=== PATIENT | female | born 2000 | race Caucasian/White ===

== ENCOUNTER 2018-07-26 00:21 | Emergency (ER) | payer SELFPAY ==
[~2018-07-26] VITALS: Ht 162.6 cm; Wt 64.9 kg
[2018-07-26] MEDS ORDERED: LEVO1TAB66 PO (00:38)
--- NOTE | 2018-07-26 00:48 | NUR ---
LOWER BACK PAIN X 2 DAYS. TODAY PAIN IS WORSE ON RIGHT SIDE, ALSO HAVING VAGINAL SPOTTING. LMP - 07/01/2018. DENIED URINARY SYMPTOMS. PT STATES SHE COULD BE . MD AT BEDSIDE, CALL LIGHT IN REACH
--- NOTE | 2018-07-26 01:14 | NUR ---
Jaja scanlon in ED - 07/26/18 at 0119 by GARFIELD PT BACK FROM CT, BEVERLY COLLECTED, SPEAKING WITH PT ABOUT KIDNEY FUNCTION AND BEING ADMITTED, NS BOLUS STARTED, EKG DONE
--- NOTE | 2018-07-26 01:21 | NUR ---
UA COLLLECTED AND SENT, CALL LIGHT IN REACH
[2018-07-26 01:33] LABS: BASOPHILS # (AUTO) 0.05 x10^3/uL (0-0.3); BASOPHILS % (AUTO) 1 % (0-1); EOSINOPHILS # (AUTO) 0.26 x10^3/uL (0-0.8); EOSINOPHILS % (AUTO) 2 % (1-7); LYMPHOCYTES # (AUTO) 1.66 x10^3/uL (1-6.1); LYMPHOCYTES % (AUTO) 15 % (22-44); MD NO; MEAN CORPUSCULAR HEMOGLOBIN 30.2 pg (27.0-34.8); MEAN CORPUSCULAR HGB CONC 33.6 g/dL (32.4-35.8); MEAN CORPUSCULAR VOLUME 89.8 fL (80-100); MEAN PLATELET VOLUME 8.7 fL (7.4-10.4); MONOCYTES # (AUTO) 0.68 x10^3/uL (0-1.4); MONOCYTES % (AUTO) 6 % (2-9); NEUTROPHILS # (AUTO) 8.67 x10^3/uL (1.8-8.0); NEUTROPHILS % (AUTO) 77 % (42-75); PLATELET COUNT 343 x10^3/uL (130-400); RED BLOOD COUNT 4.34 x10^6/uL (3.82-5.3)
[2018-07-26 01:35] LABS: ALANINE AMINOTRANSFERASE 20 U/L (12-78); ALBUMIN 3.7 g/dL (3.4-5.0); ANION GAP 5 mmol/L (5-15); CALCIUM 8.6 mg/dL (8.5-10.1); CHLORIDE 109 mmol/L (98-107); CREATININE 0.89 mg/dL (0.55-1.02)
[2018-07-26 01:36] LABS: HCG UR SG 1.017 (1.003-1.030)
[2018-07-26 01:37] LABS: CULTURE INDICATED? YES; MICROSCOPIC INDICATED
[2018-07-26 01:37] LABS: ALKALINE PHOSPHATASE 53 U/L (45-117); BILIRUBIN,TOTAL 0.6 mg/dL (0.2-1.0); TOTAL PROTEIN 7.7 g/dL (6.4-8.2)
--- NOTE | 2018-07-26 02:11 | NUR ---
Patient/Caregiver given discharge instructions and they have confirmed that they understand the instructions. Patient ambulatory with steady gait.
== END 2018-07-26 02:15 | disposition home or self-care (01) ==
LOC: ED 01:50
DX: N30.00 Acute cystitis without hematuria (principal)
CPT/HCPCS: 36415; 76700; 80053; 81001; 81025; 83690; 85025; 87077; 87086; 87186; 99284